=== PATIENT | female | born 1995 | race Caucasian/White ===

== ENCOUNTER 2021-10-06 14:52 | Emergency (ER) | payer BC, SELFPAY ==
--- NOTE | ~2021-10-06 | XR_ITS ---
EXAMINATION: XR wrist RT min 3V EXAM DATE: 10/06/2021 15:06 INDICATION: PAIN ulnar side Rt wrist onset x 2 wks; no specfic injury TECHNIQUE: Right wrist frontal, frontal with ulnar deviation, oblique and lateral projections obtain ed and reviewed. Comparison is made to prior examination from 2015. FINDINGS: Right wrist scapholunate joint space is maintained. There are no acute fractures or disloca tions identified. There is no subcutaneous gas. The soft tissue is unremarkable. There are no rad iopaque foreign bodies. There are no bony erosions identified. IMPRESSION: 1. Unremarkable XR wrist RT min 3V exam. Reviewed, dictated and finalized at location [facility]
[2021-10-06 14:56] VITALS: BP 111/76; PULSE 89; RESP 12; TEMP 36.4; O2SAT 98
--- NOTE | 2021-10-06 15:21 | ED.UPPEXIN ---
HPI - Extremity Injury (Upper) General Chief Complaint: Extremity Injury, Upper Stated Complaint: R WRIST PAIN Time Seen by Provider: 10/06/21 15:22 Source: patient, RN notes reviewed and old records reviewed Mode of arrival: ambulatory Limitations: no limitations History of Present Illness HPI narrative: 26-year-old female patient presents to [facility] with complaints of left wrist pain x2 weeks. Reports lifting weights about approximately 12 pounds 3-4 times a week regularly. First noticed pain after weight lifting. Was sore in the morning then became more sore the day wore on. Pain is usually dull and achy occasionally sharp stabbing pain with wrist movement and hurts to flex her wrist. Has taken Aleve twice daily. Aleve helps moderately with pain. Denies repetitive movement. Hurts more with certain exercises putting weight on that hand when she does planks. Denies fever muscle aches chills. complaint: injury to: right and wrist Onset (ago): week(s) (2) Related Data Home Medications Medication Instructions Recorded Confirmed buspirone mg 10/06/21 clonazepam 10/06/21 duloxetine mg PO 10/06/21 norgestimate-ethinyl estradiol tablet 10/06/21 [Estarylla] risperidone mg 10/06/21 zolpidem 10/06/21 Allergies Allergy/AdvReac Type Severity Reaction Status Date / Time Penicillins Allergy Unknown Skin Verified 08/15/17 21:20 Reaction Review of Systems Review of Systems: CONSTITUTIONAL: Denies fever, chills, or sweats. EYES: Denies visual changes, redness, or discharge. ENT: Denies rhinorrhea, congestion, sore throat, or otalgia. CARDIOVASCULAR: Denies chest pain, palpitations, or edema. RESPIRATORY: Denies cough or dyspnea. GASTROINTESTINAL: Denies abdominal pain, nausea, vomiting, or diarrhea. GENITOURINARY: Denies dysuria or hematuria. SKIN: Denies rash or itching. MUSCULOSKELETAL: Denies back pain. Right wrist pain worse with movement at times. NEUROLOGIC: Denies headache, numbness, or weakness. PSYCHIATRIC: Denies anxiety or depression. All other systems reviewed are negative, except as documented in HPI. All systems reviewed & are unremarkable except as noted in HPI and below [facility] Family History Family History (Updated 03/31/18 @ 15:34 by DOCTOR UNKNOWN) Mother Depression Grandparent Depression Family history of cardiovascular disease Sibling Depression Family history of gastrointestinal disorder Social History Social History Smoking status: Never smoker Alcohol intake: current Exam Narrative: GENERAL: Well-appearing, well-nourished, female and in no acute distress. HEAD: Normocephalic, atraumatic. EYES: conjunctivae clear NECK: Supple. Full range of motion CHEST: Speaks in full sentences. No respiratory distress. Lung sounds clear anterior and posterior. HEART: Regular rate and rhythm. Normal and equal peripheral pulses. EXTREMITIES: Bilateral upper extremities has normal strength and sensation, normal range of motion. No edema or ecchymosis. 5/5 strength with bilateral wrist flexion and extension. Normal sensation with sensitivity to light touch and pain. No point tenderness. No open wounds, no skin tenting, no devitalized tissue or atrophy, no trophic changes, no obvious deformity, alignment normal, nearby joints and structures intact. Distal pulses palpable and equal bilaterally, skin warm, dry, pink. Capillary refill less than 3 seconds. Neuro checks intact. SKIN: Warm, dry, no rash. NEURO: Alert and oriented x3. PSYCH: Normal mood and affect Course Course Emergency Course: Patient is aware of diagnosis, understands and agrees to treatment plan. Anticipatory guidance given. Patient agrees to follow-up as directed and is aware of reasons to seek care at the emergency department. Portions of this record may have been created with voice recognition software Level of Care: Express Care Visit Vital Signs Vi
== END 2021-10-06 15:44 | disposition home or self-care (01) ==
PROVIDERS: Emergency Provider Nurse Practitioner Family; PCP Family Medicine
DX: M77.8 Other enthesopathies, not elsewhere classified (principal)
CPT/HCPCS: 73110; 99213; G0463

== ENCOUNTER 2022-06-06 21:36 | Emergency (ER) | payer BC, SELFPAY ==
[2022-06-06 21:43] VITALS: BP 126/70; PULSE 106; RESP 16; TEMP 36.6; O2SAT 100
--- NOTE | 2022-06-06 23:56 | ED.ALLEREA ---
HPI - Allergic Reaction General Chief complaint: Allergic Reaction Stated complaint: rash Time Seen by Provider: 06/06/22 23:17 Source: patient Mode of arrival: ambulatory Limitations: no limitations History of Present Illness HPI narrative: Patient is a 27 y/o female who presents to the ED with c/o allergic reaction. Patient reports she suddenly developed a rash to her upper extremities, upper chest, and bilateral knees around 9:30 PM. She states she felt flushed and had a burning sensation to her skin. The rash was somewhat itchy and urticarial-like. She did not take anything for her symptoms. She does report a new medication that she started this week, a magnesium supplement, which she is taking for heart palpitations. Patient denies any other new laundry detergents, soaps, lotions, make-up, close. She denies any dyspnea, dysphagia, swelling of her lips/throat/tongue, nausea, vomiting, fever. Related Data Home Medications Medication Instructions Recorded Confirmed buspirone 10 mg tablet mg 10/06/21 clonazepam 0.5 mg tablet 10/06/21 duloxetine 60 mg capsule,delayed mg PO 10/06/21 release norgestimate 0.25 mg-ethinyl tablet 10/06/21 estradiol 35 mcg tablet (Estarylla) risperidone 1 mg tablet mg 10/06/21 zolpidem 5 mg tablet 10/06/21 Allergies Allergy/AdvReac Type Severity Reaction Status Date / Time Penicillins Allergy Unknown Skin Verified 08/15/17 21:20 Reaction Review of Systems Review of Systems: CONSTITUTIONAL: Denies fever, chills, or sweats. EYES: Denies visual changes, redness, or discharge. ENT: Denies rhinorrhea, congestion, sore throat, swelling of lips, throat, tongue. CARDIOVASCULAR: Denies chest pain. RESPIRATORY: Denies cough or dyspnea. GASTROINTESTINAL: Denies abdominal pain, nausea, vomiting. SKIN: Reports of a history upper extremities, upper chest, knees, itchy. MUSCULOSKELETAL: Denies joint pain. NEUROLOGIC: Denies headache, numbness, or weakness. All systems reviewed & are unremarkable except as noted in HPI and below [facility] Past Medical History Medical History Depression Generalized anxiety disorder Surgical History Surgical History (Updated 06/07/22 @ 00:27 by Zehra Camp PA-C) H/O wisdom tooth extraction Family History Family History (Updated 03/31/18 @ 15:34 by DOCTOR UNKNOWN) Mother Depression Grandparent Depression Family history of cardiovascular disease Sibling Depression Family history of gastrointestinal disorder Social History Social History Smoking status: Never smoker Alcohol intake: current Exam Narrative: GENERAL: Well appearing, well-nourished, non-toxic, in no acute distress. HEAD: Normocephalic, atraumatic. ENT: Pharynx clear, no erythema, no swelling of lips, tongue, palate. Uvula midline and nonedematous. NECK: Supple. No adenopathy, no masses. RESPIRATORY: Airway patent, respirations nonlabored. Clear to auscultation bilaterally, no rales, rhonchi, wheezing. CARDIOVASCULAR: Regular rate and rhythm without murmurs, rubs, or gallops. Radial pulses 2+ and equal bilaterally. MUSCULOSKELETAL: Moves all extremities. Strength/ROM intact without gross deformities. SKIN: Warm, dry, normal color. No rashes. Mild flushed appearance with minimal erythema to upper extremities, anterior upper chest, no urticaria. NEURO: A&O X3. Speech clear. Cranial nerves II-XII grossly intact. Steady gait. No ataxic movements. PSYCHIATRIC: Appropriate mood and affect. Normal interaction. Course Vital Signs Vital signs: Vital Signs Temperature 97.8 F 06/06/22 21:43 Pulse Rate 106 H 06/06/22 21:43 Respiratory Rate 16 06/06/22 21:43 Blood Pressure 126/70 06/06/22 21:43 Pulse Oximetry 100 06/06/22 21:43 Oxygen Delivery Room Air 06/06/22 21:43 Temperature 97.9 F 06/07/22 00:23 Pulse Rate 97
[2022-06-07] MEDS: methylPREDNISolone SOD SUCC 125 MG VIAL IM (00:21)
[2022-06-07 00:23] VITALS: BP 124/77; PULSE 97; RESP 18; TEMP 36.6; O2SAT 100
== END 2022-06-07 00:30 | disposition home or self-care (01) ==
PROVIDERS: Emergency Provider Emergency Medicine; PCP Family Medicine
DX: L50.0 Allergic urticaria (principal); F32.A Depression, unspecified; F41.1 Generalized anxiety disorder
CPT/HCPCS: 96372; 99283; J2930